=== PATIENT | female | born 1975 | race Caucasian/White ===

== ENCOUNTER 2018-04-05 14:17 | Emergency (ER) | payer OTHER ==
[2018-04-05] MEDS ORDERED: ACETAMINOPHEN 325 MG TABLET PO ONE (17:19)
[2018-04-05] MEDS ORDERED: MECLIZINE HCL 25 MG TABLET PO ONE (17:20)
[2018-04-05] MEDS ORDERED: ONDANSETRON HCL 8 MG TABLET PO ONE (17:20)
--- NOTE | 2018-04-05 17:20 | ER Document Report ---
HPI - HPI Patient complains to provider of: Dizzy, sore throat nausea Time Seen by Provider: 04/05/18 16:45 Onset: This morning Onset/Duration: Waxing and waning Quality of pain: Achy Pain Level: 1 Context: Patient presents complaining of dizziness with position changes in which she feels off balance. Patient reports nausea sore throat. Patient also reports occasional popping to the right ear. Patient states she was treated for sinus infection 2 weeks ago and recently finished antibiotics. Patient denies any fever or headache. Associated Symptoms: Nausea, Sore throat. denies: Chest pain, Nonproductive cough, Productive cough, Fever, Headache, Vomiting Exacerbated by: Movement Relieved by: Remaining still Similar symptoms previously: No Recently seen / treated by doctor: Yes - ROS ROS below otherwise negative: Yes Systems Reviewed and Negative: Yes All other systems reviewed and negative - CONSTITUTIONAL Constitutional: DENIES: Fever, Chills - EENT EENT: REPORTS: Sore Throat, Ear Pain, Congestion. DENIES: Eye problems - NEURO Neurology: REPORTS: Dizzinesss / Vertigo. DENIES: Headache, Weakness, Vision blurred - CARDIOVASCULAR Cardiovascular: DENIES: Chest pain - RESPIRATORY Respiratory: DENIES: Trouble Breathing, Coughing - GASTROINTESTINAL Gastrointestinal: REPORTS: Nausea. DENIES: Patient vomiting - REPRODUCTIVE Reproductive: DENIES: : - MUSCULOSKELETAL Musculoskeletal: DENIES: Extremity pain, Back Pain, Neck Pain - DERM Skin Color: Normal Skin Problems: None Past Medical History - General Information source: Patient - Social History Smoking Status: Never Smoker Chew tobacco use (# tins/day): No Frequency of alcohol use: None Drug Abuse: None Occupation: information technology teacher Lives with: Family Family History: Reviewed & Not Pertinent Patient has suicidal ideation: No Patient has homicidal ideation: No - Medical History Medical History: Negative Renal/ Medical History: Denies: Hx Peritoneal Dialysis Past Surgical History: Reports: Hx Gynecologic Surgery, Hx Vascular Surgery Vertical Provider Document - CONSTITUTIONAL Agree With Documented VS: Yes Exam Limitations: No Limitations General Appearance: WD/WN, No Apparent Distress - INFECTION CONTROL TRAVEL OUTSIDE OF THE [place] IN LAST 30 DAYS: No - HEENT HEENT: Atraumatic, Normocephalic, Pharyngeal Tenderness. negative: Pharyngeal Exudate, Pharyngeal Erythema Notes: serous effusion Right ear after ear irrigation - NECK Neck: Normal Inspection, Supple - RESPIRATORY Respiratory: Breath Sounds Normal, No Respiratory Distress - CARDIOVASCULAR Cardiovascular: Regular Rate, Regular Rhythm, No Murmur - GI/ABDOMEN Gastrointestinal: Abdomen Soft - BACK Back: Normal Inspection - MUSCULOSKELETAL/EXTREMETIES Musculoskeletal/Extremeties: AQUILES POP - NEURO Level of Consciousness: Awake, Alert, Appropriate Motor/Sensory: No Motor Deficit - DERM Integumentary: Warm, Dry, No Rash Course - Re-evaluation Re-evalutation: 04/05/18 18:43 Patient reports that dizzy symptoms have improved. Patient denies any nausea at this time. We will treat for vertigo symptoms likely attributed to serous effusion. Patient does report recent treatment for sinus infection. No concern for malignant otitis or mastoiditis. Patient nontoxic in appearance. Patient is agreeable with discharge plan of care. - Vital Signs Vital signs: Temp Pulse Resp BP Pulse Ox 99.0 F 73 16 144/86 H 97 04/05/18 14:28 04/05/18 14:28 04/05/18 14:28 04/05/18 14:28 04/05/18 14:28 Discharge - Discharge Clinical Impression: Vertigo, Nausea, Sore throat Condition: Stable Disposition: HOME, SELF-CARE Instructions: Serous Otitis Media ([facility]), Sore Throat ([facility]), Vertigo ([facility]) Additional Instructions: Return immediately for any new or worsening symptoms Followup with your primary care provider, call tomorrow to make a followup appointment Take Sudafed [id number] as directed to help with any congestion symptoms Prescriptions: Meclizine HCl [Antivert 25 mg Tablet] 25 mg PO ASDIR PRN #15 tablet PRN Reason: Ondansetron HCl [Zofran 4 mg Tablet] 1 - 2 tab PO Q6 PRN #15 tablet PRN Reason: Forms: Return to Work Referrals: [facility] [Provider Group] - Follow up as needed
[2018-04-05] MEDS ORDERED: DOCUSATE SODIUM 100 MG/10 ML UDC AU ONE (17:22)
[2018-04-05 18:58] VITALS: BP 133/84
== END 2018-04-05 19:15 | disposition home or self-care (01) ==
LOC: ER 14:17
DX: J02.9 Acute pharyngitis, unspecified (principal); R42 Dizziness and giddiness; R11.0 Nausea
CPT/HCPCS: 99283; 87070; 87880; S0119